=== PATIENT | female | born 1945 | race Caucasian/White ===

== ENCOUNTER 2017-06-06 19:45 | Emergency (ER) | payer OTHER ==
[~2017-06-06 19:45] MED LIST: AMITRIPTYLINE100 MG PO; CEL100 PO; CLINDAMYCIN HC300 MG PO; DEXILANT60 M1 PO; LEVAQUIN750 MG PO; LEXAPRO10 MG PO; MEDDP PO; METHADONE HCL10 MG PO; MODAFINIL100 M1 PO; TOP50 PO; XAN5 PO; ZAN4 PO; ZOCOR10 MG PO; ZOLPIDEM TARTRA10 MG PO; [UNRECOGNIZED DRUG - CODE] PO
[2017-06-06 21:27] LABS: BASOPHIL % 0.5 % (0-2); PLATELET COUNT 259 x10^3mcL (130-400); RED CELL DISTRIBUTION WIDTH 14.4 % (11.5-14.5)
[2017-06-06 21:44] LABS: CALCIUM 8.8 mg/dL (8.5-10.1); CARBON DIOXIDE 30.9 mmol/L (21-32); CHLORIDE SERUM 106 mmol/L (98-107); CREATININE SERUM 0.7 mg/dL (0.6-1.0); GLUCOSE SERUM 91 mg/dL (74-106); POTASSIUM SERUM 3.7 mmol/L (3.5-5.1); SODIUM SERUM 140 mmol/L (136-145)
[2017-06-06 21:48] LABS: ALBUMIN 3.4 g/dL (3.4-5.0); ALKALINE PHOSPHATASE 107 U/L (46-116); ALT/SGPT 15 U/L (14-59); AST/SGOT 19 U/L (15-37); BILIRUBIN TOTAL 0.5 mg/dL (0.20-1.00); LIPASE 42 IU/L (73-393); TOTAL PROTEIN, SERUM 7.3 g/dL (6.4-8.2)
[2017-06-07 00:21] VITALS: BP 125/66
== END 2017-06-07 | disposition home or self-care (01) ==
LOC: ED 19:45
PROVIDERS: Emergency Medicine
DX: F41.9 Anxiety disorder, unspecified (principal); I10 Essential (primary) hypertension; Z88.1 Allergy status to other antibiotic agents; Z88.0 Allergy status to penicillin; Z88.5 Allergy status to narcotic agent; Z88.6 Allergy status to analgesic agent
CPT/HCPCS: 83880; 85378; J2060